=== PATIENT | male | born 1935 | race Caucasian/White ===

== ENCOUNTER → 2019-06-26 | Outpatient (CLI) | payer OTHER | LOC: SJCVC 09:38 → SJCVCIMAG 09:38 | DX: I45.10 Unspecified right bundle-branch block (principal); I25.810 Atherosclerosis of coronary artery bypass graft(s) without angina pectoris; I10 Essential (primary) hypertension; E78.5 Hyperlipidemia, unspecified; Z95.1 Presence of aortocoronary bypass graft ==

== ENCOUNTER → 2020-04-08 | Outpatient (CLI) | payer OTHER | LOC: SJCVC 10:54 | PROVIDERS: ATTEND Internal Medicine Cardiovascular Disease | DX: R94.31 Abnormal electrocardiogram [ECG] [EKG] (principal); I49.1 Atrial premature depolarization; I45.10 Unspecified right bundle-branch block; I25.810 Atherosclerosis of coronary artery bypass graft(s) without angina pectoris; I10 Essential (primary) hypertension; Z86.39 Personal history of other endocrine, nutritional and metabolic disease; I65.23 Occlusion and stenosis of bilateral carotid arteries; Z86.16 Personal history of COVID-19; Z95.1 Presence of aortocoronary bypass graft; E78.00 Pure hypercholesterolemia, unspecified; Z88.0 Allergy status to penicillin; Z79.82 Long term (current) use of aspirin; Z79.899 Other long term (current) drug therapy; Z87.891 Personal history of nicotine dependence; Z82.49 Family history of ischemic heart disease and other diseases of the circulatory system ==

== ENCOUNTER 2020-08-02 16:33 | Emergency (ER) | payer OTHER ==
[~2020-08-02] VITALS: Ht 182.9 cm; Wt 90.3 kg
[2020-08-02] MEDS ORDERED: ROSUVASTATIN CA20 MG PO (16:52)
[2020-08-02] MEDS ORDERED: ASA81BEC PO (16:52)
[2020-08-02 17:37] LABS: ABSOLUTE NEUTROPHILS 4.6 thou/uL (1.4-8.2); BASOPHILS 0.6 % (0.0-2.0); EOSINOPHILS 0.9 % (0.0-3.0); HEMOGLOBIN 15.2 gm/dL (14.0-18.0); LYMPHOCYTES 17.2 % (24.0-44.0); MCHC 33.7 g/dL (28.0-37.0); MCV 97.9 fL (80.0-100.0); MONOCYTES 10.5 % (1.0-8.0); PLATELET COUNT 175 thou/uL (150-400); POLYS 70.8 % (36.0-66.0); RBC 4.59 mil/uL (4.50-6.00); RDW 13.1 % (10.5-14.5); WBC 6.5 thou/uL (4.0-11.0)
[2020-08-02 17:43] LABS: ANION GAP 7 mmol/L (7-16); BUN 12 mg/dL (7-18); CALCIUM 8.8 mg/dL (8.5-10.1); CHLORIDE 103 mmol/L (98-107); CO2 29 mmol/L (21-32); GLUCOSE 113 mg/dL (74-106); POTASSIUM 4.1 mmol/L (3.5-5.1); SODIUM 139 mmol/L (136-145)
[2020-08-02 17:51] LABS: TROPONIN-I <0.06 ng/mL (<0.06)
[2020-08-02 20:59] LABS: URINE BILIRUBIN NEGATIVE (Negative); URINE BLOOD 1+ (Negative); URINE CLARITY CLEAR; URINE COLOR YELLOW; URINE GLUCOSE-RANDOM* NEGATIVE (Negative); URINE KETONES NEGATIVE (Negative); URINE LEUKOCYTES-REFLEX NEGATIVE (Negative); URINE NITRITE-REFLEX NEGATIVE (Negative); URINE PROTEIN (DIPSTICK) NEGATIVE (Negative); URINE SPECIFIC GRAVITY <= 1.005 (1.005-1.035); URINE UROBILINOGEN 0.2 E.U./dl (0.2-1.0)
[2020-08-02 21:20] LABS: BACTERIA-REFLEX None Seen /HPF (None Seen); CASTS None Seen /LPF (None Seen); CRYSTALS None Seen /LPF (None Seen); MUCUS None Seen strn/LPF (None Seen); SQUAMOUS None Seen /LPF (0-3); URINE RBC 1-2 Rare /HPF (NONE SEEN); URINE WBC-REFLEX None Seen /HPF (0-5)
[2020-08-02 21:22] VITALS: BP 129/81
--- NOTE | 2020-08-03 07:25 | EKG ---
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 : 1935 Requested By: Yogi Jimenez Order Number: [id number] MD: Sheldon Sun Measurements Intervals [place] Rate: 84 P: 18 [place]: 168 QRS: 80 QRSD: 131 T: 12 QT: 383 QTc: 453 Interpretive Statements Sinus rhythm Atrial premature complex Right bundle branch block Compared to ECG 09/15/1997 06:40:00 Atrial premature complex(es) now present Right bundle-branch block now present Electronically Signed On 08-03-2020 7:25:11 CDT by Sheldon Sun [email or web address] <ELECTRONICALLY SIGNED> By: Sheldon Sun MD, [facility] 08/03/20 0725 15 15 Sheldon Sun MD, [facility] /EPI
== END 2020-08-02 21:23 | disposition home or self-care (01) ==
LOC: ER 16:33
PROVIDERS: Nurse Practitioner
DX: S09.8XXA Other specified injuries of head, initial encounter (principal); R55 Syncope and collapse; R10.9 Unspecified abdominal pain; E78.00 Pure hypercholesterolemia, unspecified; Z88.0 Allergy status to penicillin; Z79.899 Other long term (current) drug therapy; Z79.82 Long term (current) use of aspirin; W18.30XA Fall on same level, unspecified, initial encounter; Y93.89 Activity, other specified; Y92.89 Other specified places as the place of occurrence of the external cause; Y99.8 Other external cause status

== ENCOUNTER → 2020-08-04 | Outpatient (CLI) | payer OTHER ==
[~2020-08-04] MED LIST: ASA81BEC PO; ROSUVASTATIN CA20 MG PO
== END ==
LOC: SJCVC 16:49
PROVIDERS: ATTEND Internal Medicine Cardiovascular Disease
DX: R94.31 Abnormal electrocardiogram [ECG] [EKG] (principal); I45.2 Bifascicular block; I49.1 Atrial premature depolarization; I25.810 Atherosclerosis of coronary artery bypass graft(s) without angina pectoris; E78.00 Pure hypercholesterolemia, unspecified; I10 Essential (primary) hypertension; I65.23 Occlusion and stenosis of bilateral carotid arteries; Z95.1 Presence of aortocoronary bypass graft; Z88.0 Allergy status to penicillin; Z79.82 Long term (current) use of aspirin; Z79.899 Other long term (current) drug therapy; Z86.39 Personal history of other endocrine, nutritional and metabolic disease; Z86.16 Personal history of COVID-19; Z87.891 Personal history of nicotine dependence; Z82.49 Family history of ischemic heart disease and other diseases of the circulatory system

== ENCOUNTER → 2020-08-10 | Outpatient (CLI) | payer OTHER | LOC: SJCVCIMAG 14:24 | PROVIDERS: ATTEND Internal Medicine Cardiovascular Disease | DX: I65.23 Occlusion and stenosis of bilateral carotid arteries (principal) ==

== ENCOUNTER 2020-11-15 14:56 | Emergency (ER) | payer OTHER ==
[~2020-11-15] VITALS: Ht 182.9 cm; Wt 77.1 kg
[2020-11-15 15:53] LABS: ABSOLUTE NEUTROPHILS 11.2 thou/uL (1.4-8.2); BASOPHILS 0.2 % (0.0-2.0); HEMATOCRIT 48.3 % (42.0-52.0); HEMOGLOBIN 16.1 gm/dL (14.0-18.0); LYMPHOCYTES 4.2 % (24.0-44.0); MCH 32.7 pg (26.0-34.0); MCHC 33.3 g/dL (28.0-37.0); MONOCYTES 3.9 % (1.0-8.0); PLATELET COUNT 194 thou/uL (150-400); POLYS 91.7 % (36.0-66.0); RBC 4.92 mil/uL (4.50-6.00); RDW 12.8 % (10.5-14.5); WBC 12.2 thou/uL (4.0-11.0)
[2020-11-15 16:01] LABS: CALCIUM 9.1 mg/dL (8.5-10.1); CREATININE 1.3 mg/dL (0.7-1.3); POTASSIUM 4.6 mmol/L (3.5-5.1)
[2020-11-15 16:08] LABS: ALBUMIN 3.8 g/dL (3.4-5.0); TOTAL BILIRUBIN 0.7 mg/dL (0.2-1.0); TOTAL PROTEIN 7.2 g/dL (6.4-8.2)
[2020-11-15 17:22] LABS: URINE BILIRUBIN NEGATIVE (Negative); URINE BLOOD 3+ (Negative); URINE CLARITY CLEAR; URINE COLOR YELLOW; URINE GLUCOSE-RANDOM* NEGATIVE (Negative); URINE KETONES NEGATIVE (Negative); URINE LEUKOCYTES-REFLEX NEGATIVE (Negative); URINE NITRITE-REFLEX NEGATIVE (Negative); URINE PROTEIN (DIPSTICK) NEGATIVE (Negative); URINE UROBILINOGEN 0.2 E.U./dl (0.2-1.0)
[2020-11-15 17:28] LABS: SQUAMOUS None Seen /LPF (0-3); URINE WBC-REFLEX None Seen /HPF (0-5)
[2020-11-15 17:29] LABS: BACTERIA-REFLEX None Seen /HPF (None Seen); CRYSTALS None Seen /LPF (None Seen)
[2020-11-15 17:42] VITALS: BP 169/82
== END 2020-11-15 17:42 | disposition home or self-care (01) ==
LOC: ER 14:56
PROVIDERS: Emergency Medicine
DX: N20.0 Calculus of kidney (principal); R10.32 Left lower quadrant pain; E78.00 Pure hypercholesterolemia, unspecified; Z79.82 Long term (current) use of aspirin; Z79.899 Other long term (current) drug therapy; Z88.0 Allergy status to penicillin